=== PATIENT | male | born 1980 | race African-American/Black ===

== ENCOUNTER 2018-11-24 07:50 | Emergency (ER) | payer SELFPAY ==
[2018-11-24] MEDS ORDERED: FAMOTIDINE 20 MG TAB ONE (08:35)
[2018-11-24] MEDS ORDERED: DIPHENHYDRAMINE 25 MG TAB/CAP ONE (08:35)
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
== END 2018-11-24 08:55 | disposition home or self-care (01) ==
LOC: ER 07:50
DX: L23.9 Allergic contact dermatitis, unspecified cause (principal)
CPT/HCPCS: 99283